=== PATIENT | male | born 1965 | race Two or more races ===

== ENCOUNTER 2018-03-15 21:07 | Emergency (ER) | payer SELFPAY ==
[~2018-03-15] VITALS: Ht 165.1 cm; Wt 84.8 kg
--- NOTE | 2018-03-15 21:24 | NUR ---
pt ambulatory w/ steady gait, here for midneck abscess, redness, swelling w/ no drainage, AOx4 w/ resp even & unlabored, denies any pain, no sob w/ nad noted. Won, [employer] at bedside for further eval.
[2018-03-15] MEDS ORDERED: LIDOCAINE 1%-EPI 1:100,000 20 ML VIAL ONE (21:36)
--- NOTE | 2018-03-15 21:48 | NUR ---
Won, [employer] at bedside for I&D neck abscess.
[2018-03-15] MEDS ORDERED: TDAP [DIPH/PERTUSSIS/TET] 0.5 ML VIAL IM ONE ×2 (21:59→22:00)
[2018-03-15] MEDS ORDERED: LIDOCAINE 1% INJ 50 ML MDV IJ ONE (22:00)
--- NOTE | 2018-03-15 22:09 | NUR ---
Dry bulky dressing applied, no active bleeding noted. Pt tolerated procedure well w/ nad noted.
[2018-03-15 22:18] VITALS: BP 132/87
--- NOTE | 2018-03-15 22:18 | NUR ---
Patient discharged to home in stable condition. Written and verbal after care instructions given. Patient verbalizes understanding of instruction.
== END 2018-03-15 22:19 | disposition home or self-care (01) ==
LOC: ER 21:15
DX: L02.11 Cutaneous abscess of neck (principal); L03.221 Cellulitis of neck
CPT/HCPCS: 10060; 90471; 90715; 99283; A4606; A6402; J3490; Z7610